=== PATIENT | male | born 1970 ===

== ENCOUNTER 2018-01-16 16:38 | Emergency (ER) | payer OTHER ==
[2018-01-16 16:59] VITALS: BMI 32.4
--- NOTE | 2018-01-16 17:07 | EDPD ---
HPI Stroke - General Time Seen by Provider: 01/16/18 16:40 Chief Complaint: Dizziness/Lightheaded Historian: Patient - History of Present Illness Narrative History of Present Illness (Free Text): 01/16/18 17:05 A 47 year old male with not past medical history presents to the emergency department complaining of nasal congestion, sinus pressure, dizziness and lightheadedness since 2 days ago. Patient reports he went to sleep dizzy and woke up still dizzy with a ringing in his right ear. Patient notes he went to the pharmacy where he took "meclizine" which provided relief to his symptoms but still felt slightly unsteady when walking. Patient reports all symptoms were resolved when he went to an urgent care center where his right ear was cleaned however patient notes he still feels slightly lightheaded. Patient states he was sent here from the urgent care center but they sent him here because his BP was high. He states he's had blood pressure high before but has not started any blood pressure medications. Patient denies any weakness, numbness, fever, chills, shortness of breath, chest pain, diarrhea, nausea, vomiting, urinary symptoms, back pain, neck pain, headache, or any other complaints. No PMD Onset:: Days (2 days) Timing: Improved Context: Home Associated Symptoms: other (Lightheadedness ) Exacerbated by: Walking - Pain Assessment/Levels Maximum Severity: None Pain Scale: 0 Severity Current: None Pain Scale: 0 rTPA Inclusion/Exclusion - Refusal of Treatment Patient Refused Treatment: No - Inclusion Criteria for Altepase Patient is 18 years or Older: Yes The Clinical Diagnosis of Ischemic Stroke That is Causing a Potentially Disabling Neurological Deficit: No Time of Onset is Well Established to be Less Than 270 Minute Before Treatment Would Begin: No Risk/Benefit Discussed With Patient/Family Member Present: No Past Medical History - Provider Review Nursing Documentation Reviewed: Yes - Infectious Disease Hx of Infectious Diseases: None - Tetanus Immunization Tetanus Immunization: Unknown - Past Medical History Past Medical History: No Previous - Psychiatric Hx Substance Use: No - Past Surgical History Past Surgical History: No Previous - Surgical History Hx Orthopedic Surgery: Yes (R knee) - Anesthesia Hx Anesthesia Reactions: No Hx Malignant Hyperthermia: No - Suicidal Assessment Feels Threatened In Home Enviroment: No Family/Social History - Family/Social History Family History: Non-Contributory Allergies/Home Meds Allergies/Adverse Reactions: Allergies No Known Allergies Allergy (Verified 07/02/14 15:45) Review of Systems - Physician Review All systems were reviewed & negative as marked: Yes - Review of Systems Constitutional: absent: Fevers, Night Sweats Respiratory: absent: SOB Cardiovascular: absent: Chest Pain Gastrointestinal: absent: Diarrhea, Nausea, Vomiting Genitourinary Male: absent: Urinary Output Changes Musculoskeletal: absent: Back Pain, Neck Pain Neurological: Dizziness (+dizziness and lightheadedness). absent: Headache, Other (no weakness or numbness) ED Stroke Physical Exam Vital Signs Reviewed: Yes Vital Signs Temp Pulse Resp BP Pulse Ox 01/16/18 16:38 98.8 F 90 18 180/116 H 96 Temperature: Afebrile Blood Pressure: Hypertensive Pulse: Regular Respiratory Rate: Normal Appearance: Positive for: Well-Appearing, Non-Toxic, Comfortable Pain Distress: None Mental Status: Positive for: Alert and Oriented X 3 - Systems Exam Head: Present: Atraumatic, Normocephalic Pupils: Present: PERRL Extroacular Muscles: Present: EOMI Conjunctiva: Present: Normal Ears: Present: Normal, NORMAL TM, Normal Canal. No: Erythema, TM Bulging, Fluid Mouth: Present: Moist Mucous Membranes Neck: Present: Normal Range of Motion Respiratory/Chest: Present: Clear to Auscultation, Good Air Exchange. No: Re spiratory Distress, Accessory Muscle Use Cardiovascular: Present: Regular Rate and Rhythm, Normal S1, S2. No: Murmurs Abdomen: Present: Normal Bowel Sounds. No: Tenderness, Distention, Peritoneal Signs Back: Present: GCS, CN, SP Upper Extremity: Present: Normal Inspection. No: Cyanosis, Edema Lower Extremity: Present: Normal Inspection. No: Edema Neurologic: Present: GCS=15, CN II-XII Intact, Speech Normal, Motor Func Grossly Intact, Normal Sensory Function, Normal Cerebellar Funct, Gait Normal, Memory Normal, Normal 2Pt Descrimination. No: Pronator Drift, Facial Droop, Dysmetric Finger to Nose, Dysmetric Heel to Chin Skin: Present: Warm, Dry, Normal Color. No: Rashes Lymphatic: Present: OX3, NI, NC Psychiatric: Present: Alert, Oriented x 3, Normal Insight, Normal Concentration Medical Decision Making ED Course and Treatment: 01/16/18 17:05 Impression: 47 year old male presenting to the emergency room complaining of dizziness. Differential Diagnosis included but are not limited to: Benign positional vertigo vs. TIA/CVA Plan: -- type and screen -- Head CT without contrast -- EKG -- CMP -- CBC -- COAGs -- Chest X-ray -- Reassess and disposition Prior Visits: Notes and results from previous visits were reviewed. Progress Notes: 01/16/18 17:13 EKG: Ordered, reviewed, and independently interpreted the EKG. Rate : 86 BPM Rhythm : NSR Interpretation : Q waves in leads 3 and AVF. 01/16/18 17:51 Procedure: Head CT without contrast Impression: No evidence of acute intracranial hemorrhage mass effect or midline shift. Dictator: Chuck Lenz MD 01/16/18 18:06 Procedure: Chest X-ray Impression: No acute cardiopulmonary disease appreciated. Dictator: Noel Jackson MD 01/16/18 18:13 Patient's blood pressure improved. Patient asymptomatic. He is standing and walking with no reproducible symptoms and no ataxia. We discussed options for blood pressure control and whether he's been on medications before. He has not and would rather wait until he repeats his blood pressure with a PMD before starting any medications. He will continue taking Meclizine as needed for dizziness if it reoccurs. He will make sure to follow up with a PMD but I also referred him to Dr. Yvette Strange for Cardiology, Dr. Sweet for Neurology and Dr. Eldridge for ENT. He was advised to make sure to get follow up with the PMD at least within 1-2days. - RAD Interpretation Radiology Orders: 01/16/18 16:51 HEAD W/O CONTRAST [CT] Stat 01/16/18 16:52 CHEST PORTABLE [RAD] Stat - Scribe Statement The provider has reviewed the documentation as recorded by the Domenico Wilkins All medical record entries made by the Josianeibe were at my direction and personally dictated by me. I have reviewed the chart and agree that the record accurately reflects my personal performance of the history, physical exam, medical decision making, and the department course for this patient. I have also personally directed, reviewed, and agree with the discharge instructions and disposition. NIHSS Scale ([place]) Time Performed: 16:40 - How Severe is the Stoke Baseline Level of Consciousness: 0=Alert LOC to Questions: 0=Both comments correct LOC to commands: 0=Obeys both correctly Best Gaze: 0=Normal Visual: 0=No visual loss Facial: 0=Normal Motor Arm - Left: 0=No drift Motor Arm - Right: 0=No drift Motor Leg - Left: 0=No drift Motor Leg - Right: 0=No drift Limb Ataxia: 0=Absent Sensory: 0=Normal Best Language: 0=No aphasia Dysarthia: 0=Normal articulation Extinction & Inattention (Neglect): 0=Normal, no object Score: 0 Risk Level: No Stroke Risk Disposition/Present on Arrival - Present on Arrival Any Indicators Present on Arrival: No History of DVT/PE: No History of Uncontrolled Diabetes: No Urinary Catheter: No History of Decub. Ulcer: No History Surgical Site Infection Following: None - Disposition Have Diagnosis and Disposition been Completed?: Yes Diagnosis: Vertigo, Hypertension Disposition: HOME/ ROUTINE Disposition Time: 18:19 Patient Plan: Discharge Patient Problems: Current Active Problems Problem Status Onset Vertigo Acute Hypertension Acute Condition: IMPROVED Discharge Instructions (ExitCare): Vertigo (a Type of Dizziness), High Blood Pressure in Adults Additional Instructions: MEGHA SOOD, thank you for letting us take care of you today. Your provider was Jesse Silver DO and you were treated for Vertigo, High Blood Pressure. The emergency medical care you received today was directed at your acute symptoms. If you were prescribed any medication, please fill it and take as directed. It may take several days for your symptoms to resolve. Return to the Emergency Department if your symptoms worsen, do not improve, or if you have any other problems. Please contact your doctor or call one of the physicians/clinics you have been referred to that are listed on the Patient Visit Information form that is included in your discharge packet. Bring any paperwork you were given at discharge with you along with any medications you are taking to your follow up visit. Our treatment cannot replace ongoing medical care by a primary care provider outside of the emergency department. Thank you for allowing the [facility] team to be part of your care today. If you had an X-Ray or CT scan: A Radiologist will review the ED reading if any change in treatment is needed we will contact you. If you had a blood, urine, or wound culture: It will take several days for the results, if any change in treatment is needed we will contact you. If you had an STI test: It will take 48 hours for the results. Please call after 1 week if you have not heard back. Prescriptions: Meclizine [Meclizine*] 25 mg PO Q6 PRN #30 tab PRN Reason: Dizziness Referrals: Germania Glaser MD [Staff Provider] - Follow up with primary Kyler Eldridge DO [Staff Provider] - Follow up with primary Maxim Sweet MD [Staff Provider] - Follow up with primary Sandy Crawford MD [Staff Provider] - Follow up with primary Forms: [employer] ([place]), WORK NOTE
[2018-01-16 17:17] LABS: BASO # 0.02 K/mm3 (0.0-2.0); BASO % 0.2 % (0.0-3.0); EOS # 0.2 (0.0-0.7); EOS % 1.8 % (1.5-5.0); GRAN # 7.41 (1.4-6.5); GRAN % 69.8 % (50.0-68.0); HEMOGLOBIN 16.3 g/dL (14.0-18.0); LYMPH # 2.4 (1.2-3.4); LYMPH % 22.3 % (22.0-35.0); MEAN CELL VOLUME 86.9 fl (80.0-105.0); MEAN CORPUSCULAR HEMOGLOBIN 29.3 pg (25.0-35.0); MEAN CORPUSCULAR HGB CONC 33.7 g/dl (31.0-37.0); MONO # 0.6 (0.1-0.6); MONO % 5.9 % (1.0-6.0); RBC 5.57 10^6/uL (3.5-6.1); RED CELL DISTRIBUTION WIDTH 13.5 % (11.5-14.5); WHITE BLOOD COUNT 10.6 10^3/uL (4.5-11.0)
[2018-01-16 17:20] LABS: ALB/GLOB RATIO 1.3 (1.1-1.8); ALBUMIN 4.6 g/dL (3.0-4.8); BLOOD UREA NITROGEN 20 mg/dL (7-21); GFR NON-AFRICAN AMERICAN > 60
[2018-01-16 17:22] LABS: ALT/SGPT 42 U/L (7-56); AST/SGOT 41 U/L (17-59)
[2018-01-16 17:26] LABS: INR 1.02; PARTIAL THROMBOPLASTIN TIME 30.7 Seconds (25.1-36.5); PROTHROMBIN TIME 11.6 SECONDS (9.4-12.5)
[2018-01-16] MEDS ORDERED: Labetalol 5 mg/ml Inj 20ML IV STA (17:29)
--- NOTE | 2018-01-16 17:42 | CT ---
Date of service: 01/16/2018 PROCEDURE: CT HEAD WITHOUT CONTRAST. HISTORY: dizziness, hypertension COMPARISON: None available. TECHNIQUE: Axial computed tomography images were obtained through the head/brain without intravenous contrast. Radiation dose: Total exam DLP = 1745.24 mGy-cm. This CT exam was performed using one or more of the following dose reduction techniques: Automated exposure control, adjustment of the mA and/or kV according to patient size, and/or use of iterative reconstruction technique. FINDINGS: HEMORRHAGE: No intracranial hemorrhage. BRAIN: No mass effect or edema. No atrophy or chronic microvascular ischemic changes. VENTRICLES: Unremarkable. No hydrocephalus. CALVARIUM: Unremarkable. PARANASAL SINUSES: Unremarkable as visualized. No significant inflammatory changes. MASTOID AIR CELLS: Unremarkable as visualized. No inflammatory changes. OTHER FINDINGS: None. IMPRESSION: No evidence of acute intracranial hemorrhage mass effect or midline shift.
[2018-01-16 17:52] VITALS: PULSE 79
--- NOTE | 2018-01-16 17:56 | RAD ---
Date of service: 01/16/2018 HISTORY: Code Stroke COMPARISON: None available. FINDINGS: LUNGS: No active pulmonary disease. PLEURA: No significant pleural effusion identified, no pneumothorax apparent. CARDIOVASCULAR: No aortic atherosclerotic calcification present. Normal cardiac size. No pulmonary vascular congestion. OSSEOUS STRUCTURES: No significant abnormalities. VISUALIZED UPPER ABDOMEN: Normal. OTHER FINDINGS: None. IMPRESSION: No acute cardiopulmonary disease appreciated.
[2018-01-16 18:12] VITALS: BP 160/112; RESP 18; TEMP 99.5; O2SAT 96
--- NOTE | 2018-01-17 07:46 | CARD ---
APPROVED REPORT Date of service: 01/16/2018 EKG Measurement Heart [id number] MD [id number] <Conclusion> Normal sinus rhythm Possible inferior infarct, age undetermined
== END 2018-01-16 18:19 | disposition home or self-care (01) ==
LOC: ED 16:38
DX: I10 Essential (primary) hypertension (principal); R42 Dizziness and giddiness